=== PATIENT | female | born 1980 | race Caucasian/White ===

== ENCOUNTER → 2019-01-12 | Emergency (ER) | payer SELFPAY, OTHER ==
[2019-01-12] MEDS: LIDOCAINE 1% (MPF) 5 ML VIAL INFIL (22:41)
[2019-01-12] MEDS: DIPHTH/TET/ACEL PERTUSS (ADULT) 0.5 ML VIAL IM* (22:47)
== END | disposition home or self-care (01) ==
LOC: FTE 21:26
DX: S61.213A Laceration without foreign body of left middle finger without damage to nail, initial encounter (principal); W26.9XXA Contact with unspecified sharp object(s), initial encounter; Y92.000 Kitchen of unspecified non-institutional (private) residence as the place of occurrence of the external cause; Z23 Encounter for immunization
CPT/HCPCS: 12001; 90471; 90715; 99283-25